=== PATIENT | female | born 1945 | race Caucasian/White ===

== ENCOUNTER 2019-01-04 11:38 | Outpatient (CLI) | payer MEDICARE ==
[2013-12-27 17:17] VITALS: BP 145/56
--- NOTE | 2019-01-04 12:58 | Diagnostic Imaging Report ---
CHEIKH FUENTES [facility] [address] Pending Sale To [facility] [address] [address] Report Submission Date: January 04, 2019 12:53:44 PM CDT Patient Study Name: JAMILA VALLADARES I Date: January 04, 2019 11:46:39 AM CDT Modality Type: DX Gender: F Description: FOOT 3 VIEWS OR MORE : 49 Institution: [facility] Physician: CHEIKH FUENTES Exam: Right foot. History: Pain. AP and oblique view and weightbearing lateral view of the right foot are submitted. No signs of acute fracture or dislocation is identified. No bony erosions are seen. No soft tissue abnormalities identified. Spur off the plantar surface of the calcaneus is noted. Mild degenerative changes at the talonavicular joint are noted. Impression: Heel spur. Degenerative changes. Electronically signed on January 04, 2019 12:53:44 PM CDT by: Alexsander ISAAC
== END 2019-01-04 11:40 ==
LOC: RAD 11:38
PROVIDERS: ATTEND Podiatrist Foot & Ankle Surgery
DX: M77.31 Calcaneal spur, right foot (principal); M19.071 Primary osteoarthritis, right ankle and foot; M79.671 Pain in right foot
CPT/HCPCS: 73630

== ENCOUNTER 2019-03-10 10:55 | Outpatient (CLI) | payer MEDICARE ==
[2013-12-27 17:17] VITALS: BP 145/56
--- NOTE | 2019-03-10 11:55 | Diagnostic Imaging Report ---
DAKOTA BURTON [facility] [id number] Count Includes [facility] [address] [place] [address]. [id number] Report Submission Date: Mar 10, 2019 11:50:18 AM CDT Patient Study Name: JAMILA VALLADARES I Date: Mar 10, 2019 11:00:38 AM CDT Modality Type: DX Gender: F Description: BILAT KNEES 3 VIEW : 49 Institution: [facility] Physician: DAKOTA BURTON Examination: Plain film knees History: PAIN IN BOTH KNEES, RT WORSE THAN LEFT. LEFT PAIN X1 YEAR, RT PAIN X6- 8 WEEKS, NO KNOWN INJURY Findings: 4 standing views of the right and left knees demonstrates normal cortical margins. No fracture. No dislocation. No joint effusion. No soft tissue irregularity. Impression: No acute appearing osseous abnormality Electronically signed on Mar 10, 2019 11:50:18 AM CDT by: Sameer ISAAC
== END 2019-03-10 10:57 ==
LOC: RAD 10:55
PROVIDERS: ATTEND Orthopaedic Surgery
DX: M25.562 Pain in left knee (principal); M25.561 Pain in right knee